=== PATIENT | male | born 1965 | race Caucasian/White ===

== ENCOUNTER 2018-12-02 23:12 | Emergency (ER) | payer BC, OTHER ==
[~2018-12-02] VITALS: Ht 198.1 cm; Wt 131.5 kg
[2018-12-02] MEDS ORDERED: IBUPROFEN 600 MG TAB PO STA (23:41)
--- NOTE | 2018-12-03 00:54 | Diagnostic Imaging Report ---
HIP LEFT 2-3 VW (+/- PELVIS), ELBOW LEFT COMPLETE, KNEE LEFT THREE VIEWS Comparison: None Clinical history: Status post fall, pain Findings: Left hip: Mild bilateral hip degenerative changes ossification adjacent to the left acetabulum/labrum. Left knee: Moderate tricompartmental degenerative changes, worse laterally. Nonaggressive appearing sclerotic focus of the left lateral proximal tibia. Small joint effusion. Left elbow: No acute fracture or dislocation. No joint effusion. Impression: No acute bony abnormality Signed by: Dr Loree Quevedo MD on 12/03/2018 12:51 AM
== END 2018-12-03 01:57 | disposition home or self-care (01) ==
LOC: ER 23:12
DX: S50.02XA Contusion of left elbow, initial encounter (principal); S50.312A Abrasion of left elbow, initial encounter; S70.02XA Contusion of left hip, initial encounter; S80.02XA Contusion of left knee, initial encounter; W01.0XXA Fall on same level from slipping, tripping and stumbling without subsequent striking against object, initial encounter; Y93.01 Activity, walking, marching and hiking; Y92.008 Other place in unspecified non-institutional (private) residence as the place of occurrence of the external cause; I10 Essential (primary) hypertension; E11.9 Type 2 diabetes mellitus without complications; F17.210 Nicotine dependence, cigarettes, uncomplicated
CPT/HCPCS: 99283